=== PATIENT | male | born 1940 | race Caucasian/White ===

== ENCOUNTER 2023-12-30 13:51 | Emergency (ER) | payer MEDICARE, OTHER ==
[~2023-12-30] VITALS: Ht 165.1 cm; Wt 65.3 kg
[2023-12-30 15:24] LABS: BASO # 0.2 10^3/uL (0.0-0.2); BASO % 0.9 % (0.0-1.0); EOS # 0.2 10^3/uL (0.0-0.5); EOS % 0.9 % (0.0-3.0); HEMATOCRIT 34.8 % (42.0-52.0); HEMOGLOBIN 11.5 g/dl (13.5-17.5); LYMPH % 5.3 % (24.0-44.0); MEAN CORPUSCULAR HEMOGLOBIN 30.3 pg (27.0-33.0); MEAN CORPUSCULAR VOLUME 91.6 fl (80.0-96.0); MONO # 1.6 10^3/uL (0.0-0.8); MONO % 8.4 % (2.0-8.0); NEUTROPHILS # 15.6 10^3/uL (1.5-8.5); NEUTROPHILS % 83.9 % (36.0-66.0); PLATELET COUNT, AUTOMATED 288 10^3/uL (150-450)
[2023-12-30 15:28] LABS: WHITE BLOOD COUNT 18.6 10^3/uL (4.0-10.0)
[2023-12-30 15:30] LABS: INR 1.42; PROTHROMBIN TIME 16.9 SECONDS (12.5-14.5)
[2023-12-30 15:45] LABS: ALBUMIN 2.8 G/DL (3.2-5.2); BILIRUBIN,DIRECT 0.7 MG/DL (<0.4); BILIRUBIN,TOTAL 1.3 MG/DL (0.3-1.2); CALCIUM LEVEL 9.9 MG/DL (8.3-10.6); CREATININE FOR GFR 2.7 MG/DL (0.70-1.30); POTASSIUM SERUM 4.4 MMOL/L (3.5-5.1); TOTAL PROTEIN 6.4 G/DL (5.7-8.2)
[2023-12-30] MEDS ORDERED: MULT-90 PO (18:12)
[2023-12-30] MEDS ORDERED: GNP1000T11 PO (18:12)
[2023-12-30] MEDS ORDERED: ASPI81TA26 PO (18:12)
[2023-12-30] MEDS ORDERED: LOSA100T46 PO (18:12)
[2023-12-30] MEDS ORDERED: VITA200048 PO (18:12)
[2023-12-30] MEDS ORDERED: FAMO40TA3 PO (18:12)
[2023-12-30] MEDS ORDERED: CYAN-11 PO (18:12)
[2023-12-30] MEDS ORDERED: HOME MED LIST COMPLETE! XX SCH (18:15)
[2023-12-30 18:30] VITALS: BP 137/84; TEMP 96.9; O2SAT 98
== END 2023-12-30 18:42 | disposition home or self-care (01) ==
LOC: M ED 13:51
DX: C78.7 Secondary malignant neoplasm of liver and intrahepatic bile duct (principal); Z88.0 Allergy status to penicillin; Z88.8 Allergy status to other drugs, medicaments and biological substances; Z88.2 Allergy status to sulfonamides; Z79.1 Long term (current) use of non-steroidal anti-inflammatories (NSAID); Z79.899 Other long term (current) drug therapy; Z79.810 Long term (current) use of selective estrogen receptor modulators (SERMs)

== ENCOUNTER → 2024-01-18 | Outpatient (CLI) | payer MEDICARE ==
[~2024-01-18] MED LIST: ASPI81TA26 PO; CYAN-11 PO; FAMO40TA3 PO; GNP1000T11 PO; HYDR-3713 PO; LIDOCAINE 1% MDV 20ML VIAL As Ordered ONE; LOSA100T46 PO; MULT-90 PO; PHYT5TAB9 PO; VITA100T56 PO; VITA200048 PO
[2024-01-18 10:20] VITALS: TEMP 97.3
[2024-01-18 12:30] VITALS: BP 108/57; O2SAT 98
== END ==
LOC: M IRPRO 10:12
PROVIDERS: ATTEND Specialist
DX: C78.7 Secondary malignant neoplasm of liver and intrahepatic bile duct (principal)